=== PATIENT | male | born 1980 | race Caucasian/White ===

== ENCOUNTER 2020-11-03 18:46 | Emergency (ER) | payer BC, MEDICAID ==
[2020-11-03] MEDS ORDERED: cefTRIAXone 1 GM, Lidocaine 1% 2.1 ML IM SCH ×2 (19:30)
--- NOTE | 2020-11-03 19:32 | EDM.PDOC ---
ED HPI GENERAL MEDICAL PROBLEM - General Chief Complaint: Lower Extremity Injury/Pain Stated Complaint: right foot possible infection Time Seen by Provider: 11/03/20 19:01 Source of Information: Reports: Patient History Limitations: Reports: No Limitations - History of Present Illness INITIAL COMMENTS - FREE TEXT/NARRATIVE: Is a 40-year-old male. He has a history of athlete's foot that waxes and wanes. He noted yesterday he had a blister between his fourth and fifth toes in the webspace and that it popped and there was some green-brownish type drainage from it. Today he is noted that the base of his toes going to the second toe has some erythema and there is some slight erythema in his forefoot as well. There is no red streaks going up his leg. He has had no fever no chills no other acute symptoms. - Related Data Allergies Allergy/AdvReac Type Severity Reaction Status Date / Time No Known Allergies Allergy Verified 11/09/17 12:51 CDT Home Meds: Home Meds Dextroamphetamine/Amphetamine [Adderall] 60 mg PO DAILY 11/09/17 [History] FLUoxetine [PROzac] 1 cap PO DAILY 11/09/17 [History] cephALEXin [Keflex] 500 mg PO TID #21 cap 11/03/20 [Rx] Past Medical History - Infectious Disease History Infectious Disease History: Reports: Chicken Pox - Past Surgical History GI Surgical History: Reports: Appendectomy Social & Family History - Family History Family Medical History: No Pertinent Family History - Tobacco Use Tobacco Use Status *Q: Never Tobacco User Second Hand Smoke Exposure: No - Caffeine Use Caffeine Use: Reports: Coffee, Soda - Recreational Drug Use Recreational Drug Use: No Review of Systems - Review of Systems Review Of Systems: See Below Constitutional: Denies: Chills, Fever Eyes: Reports: No Symptoms Ears: Reports: No Symptoms Nose: Reports: No Symptoms Mouth/Throat: Reports: No Symptoms Respiratory: Reports: No Symptoms Cardiovascular: Reports: No Symptoms GI/Abdominal: Reports: No Symptoms Genitourinary: Reports: No Symptoms Musculoskeletal: Reports: No Symptoms Skin: Reports: Other (As per HPI) Neurological: Reports: No Symptoms Psychiatric: Reports: No Symptoms ED EXAM, GENERAL - Physical Exam Exam: See Below Exam Limited By: No Limitations General Appearance: Alert, WD/WN, No Apparent Distress Eye Exam: Bilateral Eye: Normal Inspection Ears: Normal External Exam Throat/Mouth: Normal Voice, No Airway Compromise Head: Normocephalic Neck: Supple Respiratory/Chest: No Respiratory Distress Back Exam: Full Range of Motion Extremities: Normal Inspection, Normal Range of Motion, Other (Blister between the fourth and fifth toes is open with minimal drainage, there is erythema across the base of the toes to the second toe and also slightly into the forefoot but no red streaks up the leg.) Neurological: Alert, Oriented Psychiatric: Normal Affect, Normal Mood Skin Exam: Warm, Dry, Other (Is a broken blister between the fourth and fifth toes on the left foot in the webspace.) ED TRAUMA EXTREMITY PROCEDURES - Additional/Other Procedure(s) Other (Free Text) Procedure(s): I took a pair of sterile tweezers and scissors and I debrided off the rest of the blister. He is noted to have maceration of the skin between the 2 toes due to his athlete's foot. Course - Vital Signs Last Recorded V/S: Last Vital Signs Temp 97.5 F 11/03/20 18:56 Pulse 87 11/03/20 18:56 Resp 16 11/03/20 18:56 BP 153/94 H 11/03/20 18:56 Pulse Ox 98 11/03/20 18:56 Departure - Departure Time of Disposition: 19:28 Disposition: Home, Self-Care 01 Condition: Good Clinical Impression: Cellulitis of left foot, Athlete's foot, left - Discharge Information *PRESCRIPTION DRUG MONITORING PROGRAM REVIEWED*: Not Applicable *COPY OF PRESCRIPTION DRUG MONITORING REPORT IN PATIENT MARY: Not Applicable Prescriptions: cephALEXin [Keflex] 500 mg PO TID #21 cap Instructions: Cellulitis, Adult, [id number] Additional Instructions: Use triple antibiotic ointment on the raw area of the blister, try to keep it covered and keep the toes with gauze so the skin can dry out, get your antibiotics and start taking them tomorrow evening, obviously if the antibiotics are not helping and you start getting redness going up your foot or red streaks up your leg return to the ER immediately, or if you develop a fever greater than 101.5 return to the ER. Sepsis Event Note (ED) - Evaluation Sepsis Screening Result: No Definite Risk - Focused Exam Vital Signs: Vital Signs Temp Pulse Resp BP Pulse Ox 04/10/21 18:56 97.5 F 87 16 153/94 H 98
== END 2020-11-03 19:48 | disposition home or self-care (01) ==
LOC: JD.ED 18:46
DX: L03.116 Cellulitis of left lower limb (principal); B35.3 Tinea pedis
CPT/HCPCS: 87070; 96372; 99284; J0696; 99283